=== PATIENT | female | born 1960 | race Caucasian/White ===

== ENCOUNTER 2025-02-20 18:18 | Inpatient (IN) | payer MEDICAID, MEDICARE ==
[~2025-02-20] VITALS: Ht 160 cm; Wt 67.2 kg
--- NOTE | 2025-02-20 18:38 | ECG ---
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
--- NOTE | 2025-02-20 18:50 | ED.PDOC ---
GI ASSESSMENT HPI Comments 64 year old female presents to the ED with a chief complaint of abdominal pain onset 3 days. Patient states she began experiencing diffused abdominal pain 3 days ago, noticed pain worsen this morning, had no output from colostomy bag since last night. She is currently experiencing dizziness, BP upon ED arrival was 85/56, has been experiencing intermittent abdominal pain for the past month. PMHx colon cancer, DM, HLD, HTN, thyroid disease, colectomy with colostomy bag in place. Denies fever, chills, chest pain, shortness of breath, dysuria, hematuria. No other symptoms or modifying factors present at this time. Chief Complaint: Abdominal Pain Time Seen by MD: 18:35 Primary Care Provider: NONE Reviewed Notes: Medications, Allergies Allergies: Coded Allergies: Codeine (Verified Allergy, 08/20/13) Information Source: Patient, Spouse Mode of Arrival: Wheelchair Timing: Hours Duration: Since onset Prehospital treatment: None Quality: Sharp Severity: Moderate Recent: None Recent Hx of: None Pain Location: Diffuse Modifying Factors: Nothing Associated sign and symptoms: Abdominal Pain Past Medical History PAST MEDICAL HISTORY: Cancer (colon), DM, High Lipids, HTN, Thyroid Surgical History (Other): partial thyroidectomy, colectomy 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 History Family History Family History: Unknown Social History Smoker: Non-Smoker Alcohol: Denies ETOH Use Drugs: Denies Drug Use Lives In: Home Constitutional: denies: chills, diaphoresis, fatigue, fever, malaise, sweats, weakness, others EENTM: denies: blurred vision, double vision, ear bleeding, ear discharge, ear drainage, ear pain, ear ringing, eye pain, eye redness, hearing loss, mouth pain, mouth swelling, nasal discharge, nose bleeding, nose congestion, nose pain, photophobia, tearing, throat pain, throat swelling, voice changes, others Respiratory: denies: cough, hemoptysis, orthopnea, SOB at rest, shortness of breath, SOB with excertion, stridor, wheezing, others Cardiovascular: denies: chest pain, dizzy spells, diaphoresis, Dyspnea on exertion, edema, irregular heart beat, left arm pain, lightheadedness, palpitations, PND, syncope, others Gastrointestinal: reports: abdominal pain; denies: abdomen distended, blood streaked bowels, constipated, diarrhea, dysphagia, difficulty swallowing, hematemesis, melena, nausea, poor appetite, poor fluid intake, rectal bleeding, rectal pain, vomiting, others Genitourinary: denies: abnormal vagina bleeding, burning, dyspareunia, dysuria, flank pain, frequency, hematuria, incontinence, pain, , vagina discharge, urgency, others Neurological: reports: dizziness; denies: fainting, headache, left sided numbness, left sided weakness, numbness, paresthesia, pre-existing deficit, right sided numbness, right sided weakness, seizure, speech problems, tingling, tremors, weakness, others Musculoskeletal: denies: back pain, gout, joint pain, joint swelling, muscle pain, muscle stiffness, neck pain, others Integumetry: denies: bruises, change in color, change in hair/nails, dryness, laceration, lesions, lumps, rash, wounds, others Allergic/Immunocompromised: denies: Difficulty Healing, Frequent Infections, Hives, Itching, others Hematologic/Lymphatic: denies: anemia, blood clots, easy bleeding, easy bruising, swollen glands, others Endocrine: denies: excessive hunger, excessive sweating, excessive thirst, excessive urination, flushing, intolerance to cold, intolerance to heat, unexplained weight gain, unexplained weight loss, others Psychiatric: denies: anxiety, bipolar disorder, depression, hopeless, panic disorder, schizophrenia, sleepless, suicidal, others All Other Systems: Reviewed and Negative Physical Exam General Appearance: Normal HEENT: Normal ENT Inspection, Pharynx Normal, TMs Normal Neck: Full Range of Motion, Non-Tender, Normal, Normal Inspection Respiratory: Chest Non-Tender, Lungs Clear, No Accessory Muscle Use, No Respiratory Distress, Normal Breath Sounds Cardiovascular: No Edema, No JVD, No Murmur, No Gallop, Normal Peripheral Pulses, Regular Rate/Rhythm Breast Exam: Deferred Gastrointestinal: No Organomegaly, Non Tender, No Pulsatile Mass, Normal Bowel Sounds, Soft Genitalia: Deferred Pelvic: Deferred Rectal: Deferred Extremities: No calf tenderness, Normal capillary refill, Normal inspection, Normal range of motion, Non-tender, No pedal edema Musculoskeletal : Apperance: Normal Neurologic: Alert, operations officer II-XII nml as Tested, No Motor Deficits, Normal Affect, Normal Mood, No Sensory Deficits Cerebellar Function: Normal Reflexes: Normal Skin: Dry, Normal Color, Warm Lymphatic: No Adenopathy Was a procedure done? Was a procedure done?: No GI differential Dx Differential Diagnosis: AAA, Appendicitis, Cholecystitis, Constipation, Diverticular disease, Gastritis/PUD, Gastroenteritis, GI hemorrhage, Urolithiasis, Dehydration, Kidney Stone, Other X-Ray, Labs, Meds, VS Vital Signs Date Time Temp Pulse Resp B/P (MAP) Pulse Ox O2 Delivery O2 Flow Rate FiO2 02/20/25 22:25 96.0 122 27 94/55 (68) 93 96.0 02/20/25 21:20 22 98 Room Air* 0 21 02/20/25 20:00 108 22 94/67 02/20/25 20:00 115 02/20/25 20:00 96.0 108 22 94/67 (76) 98 96.0 02/20/25 19:17 121 02/20/25 19:11 120 25 119/80 02/20/25 19:00 94.4 116 22 119/80 (93) 98 94.4 02/20/25 19:00 Room Air* 0 21 02/20/25 18:27 127 02/20/25 18:24 96.4 127 15 85/56 98 96.4 Lab Test 02/20/25 21:14 02/20/25 19:24 02/20/25 18:52 Range/Units Lactic Acid Level 11.2 *H 10.6 *H 0.4-2.0 mmol/L White Blood Count 32.0 *H 4.4-10.8 10^3/uL Red Blood Count 5.84 H 4.0-5.20 10^6/uL Hemoglobin 12.3 12.2-16.2 g/dL Hematocrit 43.5 36.0-46.0 % Mean Corpuscular Volume 74.5 L 80.0-100.0 fL Mean Corpuscular Hemoglobin 21.1 L 28.0-32.0 pg Mean Corpuscular Hemoglobin Concent 28.3 L 32.0-36.0 g/dL Red Cell Distribution Width 18.7 H 11.8-14.3 % Platelet Count 447 140-450 10^3/uL Mean Platelet Volume 9.3 6.9-10.8 fL Neutrophils (%) (Auto) 37.0-80.0 % Lymphocytes (%) (Auto) 10.0-50.0 % Monocytes (%) (Auto) 0.0-12.0 % Basophils (%) (Auto) 0.0-2.0 % Neutrophils # (Auto) 1.6-8.6 10 ^3/uL Lymphocytes # (Auto) 0.4-5.4 10 ^3/uL Monocytes # (Auto) 0-1.3 10 ^3/uL Differential Total Cells Counted 100.0 100 Neutrophils % (Manual) 64 37.0-80.0 Band Neutrophils % (Manual) 10 Lymphocytes % (Manual) 20 10.0-50.0 Monocytes % (Manual) 6 0-12 Eosinophils % (Manual) 0 0-7 Basophils % (Manual) 0 0.0-2.0 Metamyelocytes % (manual) 0 Myelocytes % (Manual) 0 Promyelocytes % (Manual) 0 Blast Cells % (Manual) 0 Reactive Lymphocytes 0 Platelet Estimate Adequate Large Platelets Few Hypochromasia (manual) Moderate Anisocytosis (manual) Moderate Microcytosis Moderate Prothrombin Time 11.9 H 9.3-11.8 sec Prothrombin Time INR 1.14 0.9-1.15 Activated Partial Thromboplast Time 30.7 24.5-34.5 SEC Sodium Level 136 136-145 mmol/L Potassium Level 2.9 L 3.5-5.1 mmol/L Chloride Level 102 98-107 mmol/L Carbon Dioxide Level 13 L 20-31 mmol/L Anion Gap 21 H 5-15 Blood Urea Nitrogen 18 9-23 mg/dL Creatinine 1.07 H 0.550-1.02 mg/dL Glomerular Filtration Rate Calc 58 >90 mL/min BUN/Creatinine Ratio 16.8 10.0-20.0 Serum Glucose 559 *H 74-106 mg/dL Hemoglobin A1c 7.1 H <5.7 % A1C Calcium Level 8.8 8.7-10.4 mg/dL Total Bilirubin 0.4 0.2-1.0 mg/dL Aspartate Amino Transferase (AST) 17 13-40 U/L Alanine Aminotransferase (ALT) 18 7-40 U/L Alkaline Phosphatase 124 H 46-116 U/L Total Protein 7.3 5.7-8.2 g/dL Albumin 4.4 3.2-4.8 g/dL Lipase 63 H 12-53 U/L Beta-Hydroxybutyric Acid Pending Current Medications Medications (Trade) Dose Ordered Sig/Kim Route Start Time Stop Time Status Last Admin Ondansetron HCl (Zofran) 4 mg ONCE ONCE IV 02/20/25 18:45 02/20/25 18:46 DC 02/20/25 19:10 Sodium Chloride 1,000 ml @ 1,000 mls/hr Q1H ONCE IVB 02/20/25 18:45 02/20/25 19:44 DC 02/20/25 19:12 Morphine Sulfate 4 mg ONCE ONCE IV 02/20/25 18:45 02/20/25 18:46 DC 02/20/25 19:11 Piperacillin Sod/ Tazobactam Sod 100 ml @ 100 mls/hr ONCE ONCE IV 02/20/25 19:15 02/20/25 20:14 DC 02/20/25 20:03 Insulin Human Regular (InsuLIN R) 5 units ONCE ONCE SC 02/20/25 19:30 02/20/25 19:31 DC 02/20/25 20:06 Potassium Chloride 100 ml @ 50 mls/hr ONCE ONCE IV 02/20/25 19:30 02/20/25 21:29 DC 02/20/25 21:33 Potassium Chloride (Klor-Con Tablet) 20 meq ONCE ONCE PO 02/20/25 19:30 02/20/25 19:31 DC 02/20/25 20:09 Lactated Ringer's 1,000 ml @ 1,000 mls/hr Q1H ONCE IV 02/20/25 22:30 02/20/25 23:29 DC 02/20/25 23:40 Lactated Ringer's 1,000 ml @ 125 mls/hr Q8H ONCE IV 02/20/25 22:30 02/21/25 06:29 02/21/25 01:04 Vancomycin HCl 250 ml @ 200 mls/hr ONCE ONCE IV 02/20/25 22:30 02/20/25 23:44 DC 02/20/25 23:[address] [address] Ph: [phone] DIAGNOSTIC IMAGING Diagnostic Imaging Report : [id number] Signed PATIENT: POOJA SCHILLING ACCT: [id number] UNIT: [id number] : 1960 LOC: ER ROOM / BED: / AGE / SEX: 64 / F ADM STATUS: REG ER SERVICE 1841 ORDERING PHYSICIAN: CIARA TRAVIS MD PROCEDURE(s): ABPLIV - CT AB PEL WITH IV CON ONLY REASON: abd pain h/o colon cancer resection / colostomy ORDER NUMBER(s): [id number], ACCESSION NUMBER(s): [id number] Exam: CT CT AB PEL WITH IV CON ONLY History: abd pain h/o colon cancer resection / colostomy Comparison Study: None TECHNIQUE: Multidetector CT of the abdomen was performed from lung bases to pubic symphysis. Imaging was performed without IV contrast. Axial, coronal and sagittal multiplanar reformats were obtained from the axial data set by the technologist. Radiation Dose Information: CT Dose: CTDI volume is 15.69 mGy. Dose-length product is 819.2 mGy*cm Omnipaque 300: 100 mL. FINDINGS: Evaluation of solid organs is limited due to lack of intravenous contrast use. Findings: Lung Bases: No acute or significant lung base finding. Normal heart size. No pleural or pericardial effusion. Liver: The liver is normal in size. No focal lesions. Gallbladder and Biliary Tree: Unremarkable Spleen: Unremarkable Pancreas: The pancreas is grossly normal in appearance. Adrenal Glands: Unremarkable Kidneys: Kidneys are grossly normal without calculi or hydronephrosis. Bladder: Grossly unremarkable for degree of distention. Bowel: The stomach is grossly normal in appearance. Small bowel and colon are normal in caliber and distribution. The appendix is not visualized; however, no secondary findings of acute appendicitis identified. Ascites: Scattered ascites. Lymphadenopathy: No mesenteric, retroperitoneal or periportal lymphadenopathy. Abdominal Wall and Mesentery: Colostomy in the left abdomen with subcutaneous collection of bowel and mesenteric fat in the area of the colostomy measuring 8.5 cm transverse dimension 4.3 cm in AP dimension. Dilatation of the small fang wel proximal to the colostomy. Vasculature: The visualized abdominal aorta is normal in size and caliber. Evaluation of abdominal and pelvic vessels is limited due to lack of intravenous contrast. Pelvic Organs: Ascites in the pelvis and cul-de-sac. e Musculoskeletal: No aggressive focal bony lesions, acute fractures or dislocation. Soft tissues: Unremarkable IMPRESSION: 1. Colostomy in the lower left abdomen. 2. Possible herniation into the subcutaneous tissues of the colostomy. 3. Possible small bowel obstruction. 4. Ascites 5. Compression of L1and T11. No displacement.No priorstudiesfor comparison. Radiation optimization: All CT scans at this facility use at least one of these dose optimization techniques: automated exposure control mA and/or kV adjustment per patient size (includes targeted exams where dose is matched to clinical indication) or iterative reconstruction. ATED BY: NELIDA NIXON Jr., DO DICTATED DATE/TIME: 02/20/252125 SIGNED BY: NELIDA NIXON Jr., SIGNED DATE/TIME: 02/20/252125 CC: Time of 1ST Reevaluation: 19:05 Reevaluation 1ST: Unchanged Patient Education/Counseling: Diagnosis, Treatment, Prognosis Family Education/Counseling: Diagnosis, Treatment, Prognosis Additional Information The following tests were ordered, and results were reviewed by me: EKG, CBC, CMP, LIPASE, UA, CT AB PEL WITH IV CON, PTPTT Additional Information was gathered from interviewing the following independent historians: spouse I reviewed and agreed with the following test results read by other providers:CT AB PEL WITH IV CON, I discussed treatment and results with medical personnel and: patient and spouse Comprehensive systems review obtained and negative except for what is stated in the HPI. Sepsis focused exam: focus exam completed (Patient was given 1 L of normal saline IV bolus fluid resuscitation and not the 30 cc/kilogram bolus due to concerns of fluid overload), time: (1999) SEPSIS Sepsis Screen Date sepsis recognized/suspect: Feb 20, 2025 Time Sepsis recognized/suspect: 1824 Recent Procedure: No On Antibiotic Therapy: No Respiratory Rate >20: No Heart Rate >90: Yes Temp<36 C (96.8 F) or >38.3 C: No SBP <90 or MAP <65 mmHG: Yes New Acute Mental Status Change: No Is the patient on CPAP, BIPAP,: No Physician Orders Electrocardigram (02/20/25 18:34) Ct Ab Pel With Iv Con Only (02/20/25 18:41) Blood Culture (02/20/25 19:10) Straight Cath Patient (02/20/25 21:45) Lactated Ringer's (02/20/25 22:30) Meropenem 1gm Ivpb (Merrem 1gm/ Ns) (02/21/25 01:00) Ng/Orogastric Tube To Lis (02/20/25 22:21) Vancomycin Per Pharmacy (02/20/25 22:30) Complete Blood Count (02/21/25 04:00) Comprehensive Metabolic Panel (02/21/25 04:00) Communication Order (02/20/25 22:27) Beta-Hydroxybutyrate (02/20/25 22:27) Intake And Output (02/20/25 22:32) Insert Subramanian Catheter QSHIFT (02/20/25 22:32) Npo (Nothing By Mouth) Diet (02/21/25 Breakfast) Oxygen By Nasal Cannula (02/20/25 22:32) Notify Of Changes From Base (02/20/25 22:32) Vital Signs Date Time Temp Pulse Resp B/P (MAP) Pulse Ox O2 Delivery O2 Flow Rate FiO2 02/20/25 22:25 96.0 122 27 94/55 (68) 93 96.0 02/20/25 21:20 22 98 Room Air* 0 21 02/20/25 20:00 108 22 94/67 02/20/25 20:00 115 02/20/25 20:00 96.0 108 22 94/67 (76) 98 96.0 02/20/25 19:17 121 02/20/25 19:11 120 25 119/80 02/20/25 19:00 94.4 116 22 119/80 (93) 98 94.4 02/20/25 19:00 Room Air* 0 21 02/20/25 18:27 127 02/20/25 18:24 96.4 127 15 85/56 98 96.4 Laboratory Tests Test 02/20/25 18:52 02/20/25 19:24 02/20/25 21:14 White Blood Count 32.0 10^3/uL (4.4-10.8) *H Lactic Acid Level 10.6 mmol/L (0.4-2.0) *H 11.2 mmol/L (0.4-2.0) *H Medications Medications Dose Ordered Sig/Kim Route Start Time Stop Time Status Last Admin Dose Admin Insulin Human Regular 5 units ONCE ONCE SC 02/20/25 19:30 02/20/25 19:31 DC 02/20/25 20:06 Lactated Ringer's 1,000 ml @ 125 mls/hr Q8H ONCE IV 02/20/25 22:30 02/21/25 06:29 02/21/25 01:04 Lactated Ringer's 1,000 ml @ 1,000 mls/hr Q1H ONCE IV 02/20/25 22:30 02/20/25 23:29 DC 02/20/25 23:40 Morphine Sulfate 4 mg ONCE ONCE IV 02/20/25 18:45 02/20/25 18:46 DC 02/20/25 19:11 Ondansetron HCl 4 mg ONCE ONCE IV 02/20/25 18:45 02/20/25 18:46 DC 02/20/25 19:10 Piperacillin Sod/ Tazobactam Sod 100 ml @ 100 mls/hr ONCE ONCE IV 02/20/25 19:15 02/20/25 20:14 DC 02/20/25 20:03 Potassium Chloride 20 meq ONCE ONCE PO 02/20/25 19:30 02/20/25 19:31 DC 02/20/25 20:09 Potassium Chloride 100 ml @ 50 mls/hr ONCE ONCE IV 02/20/25 19:30 02/20/25 21:29 DC 02/20/25 21:33 Sodium Chloride 1,000 ml @ 1,000 mls/hr Q1H ONCE IVB 02/20/25 18:45 02/20/25 19:44 DC 02/20/25 19:12 Vancomycin HCl 250 ml @ 200 mls/hr ONCE ONCE IV 02/20/25 22:30 02/20/25 23:44 DC 02/20/25 23:52 Departure 1 Departure Time of Disposition: 21:00 Impression: Primary Impression: Acute abdominal Pain Additional Impressions: acute dehydration Partial bowel obstruction Non-specific colitis Cardiopulmonary arrest Disposition: 20 Admit to: Condition: Unstable Comments Lab review shows a high white blood cell count of 38. Lactic acid elevated 10. Sepsis protocol was initiated. Patient was given IV fluid resuscitation and IV Zosyn and Vancomycin and Meropenem antibiotics. Patient was alert at this point and insisted that she did not want CPR or intubation. Patient is vital signs deteriorated. She was started on several pressors. She became bradycardic and hypotensive. ACLS medications were given. Patient developed PEA and then deteriorated to asystole. Patient was declared at 04:45 a.m. Critical Care Note Critical Care Time?: Yes (45 min-critical care time only) Critical care comment: Total critical care time: Approximately 36 minutes Due to a high probability of clinically significant, life threatening deterioration, the patient required my highest level of preparedness to intervene emergently and I personally spent this critical care time directly and personally managing the patient. This critical care time included obtaining a history; examining the patient; pulse oximetry; ordering and review of studies; arranging urgent treatment with development of a management plan; evaluation of patient's response to treatment; frequent reassessment; and, discussions with other providers. This critical care time was performed to assess and manage the high probability of imminent, life-threatening deterioration that could result in multi-organ failure. It was exclusive of separately billable procedures and treating other patients. Stability Stability form required: No Heart Score Heart Score: Heart Score Response (Comments) Value History N/A 0 EKG N/A 0 Age N/A 0 Risk Factors N/A 0 Troponin N/A 0 Total 0 I personally scribed for CIARA TRAVIS MD ([email or web address]) on 02/20/25 at 18:50. Electronically submitted by Laurie Valera ([email or web address]). I personally scribed for CIARA TRAVIS MD ([email or web address]) on 02/20/25 at 19:11. Electronically submitted by Laurie Valera ([email or web address]). I personally scribed for CIARA TRAVIS MD ([email or web address]) on 02/20/25 at 21:50. Electronically submitted by Laurie Valera ([email or web address]). CIARA TRAVIS MD Feb 20, 2025 18:50
[2025-02-20 19:08] LABS: Mean Corpuscular Hemoglobin 21.1 pg (28.0-32.0)
[2025-02-20 19:10] LABS: Hematocrit 43.5 % (36.0-46.0); Hemoglobin 12.3 g/dL (12.2-16.2); Mean Corpuscular Volume 74.5 fL (80.0-100.0)
[2025-02-20] MEDS: ONDANSETRON HCL 4 MG/2 ML VIAL IV ONE (19:10)
[2025-02-20] MEDS: MORPHINE SULFATE 4 MG/ML SYR/VIAL IV ONE (19:11)
[2025-02-20] MEDS: SODIUM CHLORIDE 0.9% 1,000 ML IVB ONE (19:12)
[2025-02-20 19:20] LABS: INR 1.14 (0.9-1.15); Partial Thromboplastin Time 30.7 SEC (24.5-34.5); Prothrombin Time 11.9 sec (9.3-11.8)
[2025-02-20 19:22] LABS: Alanine Aminotransferase 18 U/L (7-40); Albumin 4.4 g/dL (3.2-4.8); Anion Gap 21 (5-15); BUN/Creatinine Ratio 16.8 (10.0-20.0); Blood Urea Nitrogen 18 mg/dL (9-23); Calcium 8.8 mg/dL (8.7-10.4); Chloride 102 mmol/L (98-107); Total Protein 7.3 g/dL (5.7-8.2)
[2025-02-20 19:23] LABS: Alkaline Phosphatase 124 U/L (46-116); Bilirubin, Total 0.4 mg/dL (0.2-1.0); Carbon Dioxide 13 mmol/L (20-31); Potassium 2.9 mmol/L (3.5-5.1); Sodium 136 mmol/L (136-145)
[2025-02-20 19:25] LABS: Glucose 559 mg/dL (74-106)
[2025-02-20 19:44] LABS: Lipase 63 U/L (12-53)
[2025-02-20] MEDS: IOHEXOL 300 MG/ML 100ML BOTTLE IJ ONE ×2 (19:51→20:36)
[2025-02-20 19:56] LABS: Anisocytosis Moderate; Total Cells Counted 100.0 (100)
[2025-02-20] MEDS: PIPERACILLIN-TAZOB 3.375GM 100 ML IV ONE (20:03)
[2025-02-20] MEDS: InsuLIN REG 1unit/0.01ml Soln (100units/ml) SC ONE (20:06)
[2025-02-20] MEDS: POTASSIUM CHL 20 Meq TABLET PO ONE (20:09)
[2025-02-20 20:25] LABS: Lactic Acid w/Reflex 10.6 mmol/L (0.4-2.0)
[2025-02-20 21:20] VITALS: RESP 22; O2SAT 98
--- NOTE | 2025-02-20 21:29 | DVH ---
Exam: CT CT AB PEL WITH IV CON ONLY History: abd pain h/o colon cancer resection / colostomy Comparison Study: None TECHNIQUE: Multidetector CT of the abdomen was performed from lung bases to pubic symphysis. Imaging was performed without IV contrast. Axial, coronal and sagittal multiplanar reformats were obtained fr om the axial data set by the technologist. Radiation Dose Information: CT Dose: CTDI volume is 15.69 mGy. Dose-length product is 819.2 mGy*cm Omnipaque 300: 100 mL. FINDINGS: Evaluation of solid organs is limited due to lack of intravenous contrast use. Findings: Lung Bases: No acute or significant lung base finding. Normal heart size. No pleural or pericardial effusion. Liver: The liver is normal in size. No focal lesions. Gallbladder and Biliary Tree: Unremarkable Spleen: Unremarkable Pancreas: The pancreas is grossly normal in appearance. Adrenal Glands: Unremarkable Kidneys: Kidneys are grossly normal without calculi or hydronephrosis. Bladder: Grossly unremarkable for degree of distention. Bowel: The stomach is grossly normal in appearance. Small bowel and colon are normal in caliber and d istribution. The appendix is not visualized; however, no secondary findings of acute appendicitis id entified. Ascites: Scattered ascites. Lymphadenopathy: No mesenteric, retroperitoneal or periportal lymphadenopathy. Abdominal Wall and Mesentery: Colostomy in the left abdomen with subcutaneous collection of bowel and mesenteric fat in the area of the colostomy measuring 8.5 cm transverse dimension 4.3 cm in AP dimen karol. Dilatation of the small bowel proximal to the colostomy. Vasculature: The visualized abdominal aorta is normal in size and caliber. Evaluation of abdominal a nd pelvic vessels is limited due to lack of intravenous contrast. Pelvic Organs: Ascites in the pelvis and cul-de-sac. e Musculoskeletal: No aggressive focal bony lesions, acute fractures or dislocation. Soft tissues: Unremarkable IMPRESSION: 1. Colostomy in the lower left abdomen. 2. Possible herniation into the subcutaneous tissues of the colostomy. 3. Possible small bowel obstruction. 4. Ascites 5. Compression of L1and T11. No displacement.No priorstudiesfor comparison. Radiation optimization: All CT scans at this facility use at least one of these dose optimization richard hniques: automated exposure control mA and/or kV adjustment per patient size (includes targeted exam s where dose is matched to clinical indication) or iterative reconstruction.
[2025-02-20] MEDS: POTASSIUM CHL 20MEQ/100ML 100 ML IV ONE (21:33)
--- NOTE | 2025-02-20 22:23 | DVHHPRES ---
History of Present Illness Resident Creating Document: CYRUS ALVA RESIDENT History of Present Illness 64-year-old female with previous history of metastatic colon cancer resection surgery with left-sided colostomy bag in place, weight reduction surgery, multiple spine surgeries following trauma, thyroid cancer resection on levo thyroxine, uncontrolled diabetes mellitus and hypertension presents to the ER with diffuse crampy abdominal pain since last 3 days, which is intermittent in nature, 10/10 in intensity, associated with bilious vomiting and nausea. Since morning she had no colostomy bag output. The patient denies any chest pain, shortness of breath, fever, burning sensation in urination or any other associated complaints. Past medical history: Diabetes mellitus, hypertension Past surgical history: Metastatic colon cancer resection surgery with right- sided colostomy bag in place, weight reduction surgery, multiple spine surgeries following trauma, thyroid cancer resection on levothyroxine Home medications: Metformin, levothyroxine, oxybutynin, zolpidem, Lipitor, Zoloft Allergies: Codeine PCP: None Family history: Mother had colon cancer Lives with family Smoking history: Never Alcohol: Never Drugs: Never Code status DNR DNI Review of Systems Review of Systems Was seen and examined at the bedside. She reports having abdominal pain, nausea and vomiting and decreased colostomy bag output. Rest of the ROS is negative. Allergies: Coded Allergies: Codeine (Verified Allergy, 08/20/13) Exam Vital Signs Vital Signs Date Time Temp Pulse Resp B/P (MAP) Pulse Ox O2 Delivery O2 Flow Rate FiO2 02/20/25 21:20 22 98 Room Air* 0 21 02/20/25 20:00 96.0 108 94/67 (76) 96.0 Exam Pt is lying on bed General Appearance: Alert, Oriented X3, Cooperative, Mild distress HEENT: Atraumatic, Mucous membranes moist/pink Respiratory: Clear to auscultation, Normal air movement, No added sounds Cardiovascular: Regular rate, Normal S1, Normal S2, No murmurs Abdominal/ : Colostomy bag with minimal output on the left lower abdomen, Diminished bowel sounds, no rigidity or guarding, mildly distended, diffusely tender Extremities: No edema, Normal pulses, No tenderness/swelling Skin: No Significant rash, except past surgical scars Neuro: Normal speech, sensorimotor deficits none Psych/Mental Status: Mental status NL, Mood NL Nurse was there as store planner during examination Labs/Xrays Labs Test 02/20/25 21:14 02/20/25 18:52 Range/Units Lactic Acid Level 11.2 *H 0.4-2.0 mmol/L White Blood Count 32.0 *H 4.4-10.8 10^3/uL Red Blood Count 5.84 H 4.0-5.20 10^6/uL Hemoglobin 12.3 12.2-16.2 g/dL Hematocrit 43.5 36.0-46.0 % Mean Corpuscular Volume 74.5 L 80.0-100.0 fL Mean Corpuscular Hemoglobin 21.1 L 28.0-32.0 pg Mean Corpuscular Hemoglobin Concent 28.3 L 32.0-36.0 g/dL Red Cell Distribution Width 18.7 H 11.8-14.3 % Platelet Count 447 140-450 10^3/uL Mean Platelet Volume 9.3 6.9-10.8 fL Neutrophils (%) (Auto) 37.0-80.0 % Lymphocytes (%) (Auto) 10.0-50.0 % Monocytes (%) (Auto) 0.0-12.0 % Basophils (%) (Auto) 0.0-2.0 % Neutrophils # (Auto) 1.6-8.6 10 ^3/uL Lymphocytes # (Auto) 0.4-5.4 10 ^3/uL Monocytes # (Auto) 0-1.3 10 ^3/uL Differential Total Cells Counted 100.0 100 Neutrophils % (Manual) 64 37.0-80.0 Band Neutrophils % (Manual) 10 Lymphocytes % (Manual) 20 10.0-50.0 Monocytes % (Manual) 6 0-12 Eosinophils % (Manual) 0 0-7 Basophils % (Manual) 0 0.0-2.0 Metamyelocytes % (manual) 0 Myelocytes % (Manual) 0 Promyelocytes % (Manual) 0 Blast Cells % (Manual) 0 Reactive Lymphocytes 0 Platelet Estimate Adequate Large Platelets Few Hypochromasia (manual) Moderate Anisocytosis (manual) Moderate Microcytosis Moderate Prothrombin Time 11.9 H 9.3-11.8 sec Prothrombin Time INR 1.14 0.9-1.15 Activated Partial Thromboplast Time 30.7 24.5-34.5 SEC Sodium Level 136 136-145 mmol/L Potassium Level 2.9 L 3.5-5.1 mmol/L Chloride Level 102 98-107 mmol/L Carbon Dioxide Level 13 L 20-31 mmol/L Anion Gap 21 H 5-15 Blood Urea Nitrogen 18 9-23 mg/dL Creatinine 1.07 H 0.550-1.02 mg/dL Glomerular Filtration Rate Calc 58 >90 mL/min BUN/Creatinine Ratio 16.8 10.0-20.0 Serum Glucose 559 *H 74-106 mg/dL Calcium Level 8.8 8.7-10.4 mg/dL Total Bilirubin 0.4 0.2-1.0 mg/dL Aspartate Amino Transferase (AST) 17 13-40 U/L Alanine Aminotransferase (ALT) 18 7-40 U/L Alkaline Phosphatase 124 H 46-116 U/L Total Protein 7.3 5.7-8.2 g/dL Albumin 4.4 3.2-4.8 g/dL Lipase 63 H 12-53 U/L SEPSIS Sepsis Screen Date sepsis recognized/suspect: Feb 20, 2025 Time Sepsis recognized/suspect: 1824 Recent Procedure: No On Antibiotic Therapy: No Respiratory Rate >20: No Heart Rate >90: Yes Temp<36 C (96.8 F) or >38.3 C: No SBP <90 or MAP <65 mmHG: Yes New Acute Mental Status Change: No Is the patient on CPAP, BIPAP,: No Physician Orders Urinalysis (02/20/25 18:41) Ct Ab Pel With Iv Con Only (02/20/25 18:41) Blood Culture (02/20/25 19:10) Straight Cath Patient (02/20/25 21:45) Vital Signs Date Time Temp Pulse Resp B/P (MAP) Pulse Ox O2 Delivery O2 Flow Rate FiO2 02/20/25 21:20 22 98 Room Air* 0 21 02/20/25 20:00 96.0 108 22 94/67 (76) 98 96.0 02/20/25 19:17 121 02/20/25 19:11 120 25 119/80 02/20/25 19:00 94.4 116 22 119/80 (93) 98 94.4 02/20/25 19:00 Room Air* 0 21 02/20/25 18:27 127 02/20/25 18:24 96.4 127 15 85/56 98 96.4 Laboratory Tests Test 02/20/25 18:52 02/20/25 19:24 02/20/25 21:14 White Blood Count 32.0 10^3/uL (4.4-10.8) *H Lactic Acid Level 10.6 mmol/L (0.4-2.0) *H 11.2 mmol/L (0.4-2.0) *H Medications Medications Dose Ordered Sig/Kim Route Start Time Stop Time Status Last Admin Dose Admin Insulin Human Regular 5 units ONCE ONCE SC 02/20/25 19:30 02/20/25 19:31 DC 02/20/25 20:06 5 UNITS Morphine Sulfate 4 mg ONCE ONCE IV 02/20/25 18:45 02/20/25 18:46 DC 02/20/25 19:11 4 MG Ondansetron HCl 4 mg ONCE ONCE IV 02/20/25 18:45 02/20/25 18:46 DC 02/20/25 19:10 4 MG Piperacillin Sod/ Tazobactam Sod 100 ml @ 100 mls/hr ONCE ONCE IV 02/20/25 19:15 02/20/25 20:14 DC 02/20/25 20:03 100 MLS/HR Potassium Chloride 20 meq ONCE ONCE PO 02/20/25 19:30 02/20/25 19:31 DC 02/20/25 20:09 20 MEQ Potassium Chloride 100 ml @ 50 mls/hr ONCE ONCE IV 02/20/25 19:30 02/20/25 21:29 DC 02/20/25 21:33 50 MLS/HR Sodium Chloride 1,000 ml @ 1,000 mls/hr Q1H ONCE IVB 02/20/25 18:45 02/20/25 19:44 DC 02/20/25 19:12 1,000 MLS/HR Assessment/Plan Assessment/Plan Sepsis due to small bowel obstruction Severe abdominal pain due to small-bowel obstruction Leukocytosis: WBC 32, lactic acid: 11 CT abdomen and pelvis:Colostomy in the lower left abdomen.Possible herniation into the subcutaneous tissues of the colostomy.Possible small bowel obstruction. Ascites. Compression of L1and T11. No displacement.No priorstudiesfor comparison. -NPO -IV fluid lactated Ringer's solution -low intermittent suction with NG tube -meropenem and vancomycin -general surgery consulted Metabolic acidosis due to lactic acidosis/DKA Uncontrolled diabetes mellitus ABG: PH 7.1-7, pCO2 17.6, PO2 108.5, bicarbonate 5.7, base excess -21.5 -ongoing management of lactic acidosis and DKA -start sodium bicarbonate -Lantus 18 units subcutaneous -moderate insulin sliding scale -HbA1c ordered, pending results Hypothyroidism followed by Thyroid resection due to cancer Levothyroxine 125 mcg would tablet daily for 6 days. 1.5 tablets once a week. Hyperlipidemia Lipitor 40 mg daily GI prophylaxis: Pantoprazole DVT prophylaxis: SCDs until surgery consult Diet: NPO Goals of care discussed with the patient for more than 27 minutes: Full code status Case discussed with Dr. Donato, patient and RN Plan discussed with: Patient, Spouse (RN), Other Date of Service: Feb 20, 2025 Billing Provider: HUGO DONATO MD Common Visit Codes: [id number] INP/OBS CARE (HIGH) CYRUS ALVA Feb 20, 2025 22:23 HUGO DONATO MD Feb 21, 2025 16:36
[2025-02-20] MEDS ORDERED: VANCOMYCIN PER PHARMACY 0 MG IV SCH (22:30)
[2025-02-20 22:49] LABS: Base Excess -21.5 mmol/L (-2.0-3.0)
[2025-02-20] MEDS ORDERED: DEXTROSE (50%) 50ML SYRG IV PRN (23:15)
[2025-02-20] MEDS: LACTATED RINGER'S 1,000 ML IV ONE (23:40)
[2025-02-20] MEDS: VANCOMYCIN 1.25GM/250ML IV ONE (23:52)
[2025-02-21] MEDS: ACCU-CHEK COMFORT CURVE STRIP VI SCH (00:13)
[2025-02-21] MEDS: INSULIN LANTUS (GLARGINE) 1 /0.01ml (100units/ml) SC STA (00:23)
[2025-02-21] MEDS: InsuLIN REG 1unit/0.01ml Soln (100units/ml) SC SCH (00:24)
[2025-02-21] MEDS: POTASSIUM CHL 20MEQ/100ML 100 ML IV ONE (01:03)
[2025-02-21] MEDS: LACTATED RINGER'S 1,000 ML IV ONE (01:04)
--- NOTE | 2025-02-21 01:08 | DVH ---
CHEST RADIOGRAPH Indication: NG TUBE PLACEMENT Technique: Single frontal view of the chest was obtained Comparison: None FINDINGS: Lines and Tubes: enteric tube although side hole appears to be at GE junction; consider at least 3 cm advancement. Lungs: No focal consolidation. Pleura: No effusion. No pneumothorax. Cardiomediastinal contours: Unremarkable Bones: No acute osseous abnormality. cervical acdf. IMPRESSION: 1. enteric tube although side hole appears to be at GE junction; consider at least 3 cm advancement.
[2025-02-21 01:30] VITALS: TEMP 98.7
[2025-02-21 01:38] LABS: Lactic Acid w/Reflex 10.6 mmol/L (0.4-2.0)
[2025-02-21 02:11] LABS: Urine Protein, UAD 1+ (Negative)
[2025-02-21] MEDS ORDERED: NOREPINEPHRINE 8 MG/250ML KIT 250 ML IV SCH (02:15)
[2025-02-21 02:24] LABS: Benzodiazephine Screen, Urine Neg (NEGATIVE); Opiate Scree,Urine Pos (NEGATIVE)
[2025-02-21 02:27] LABS: Amphetamine Screen, Urine Neg (NEGATIVE); Barbiturate Scree,Urine Neg (NEGATIVE); Cannabinoid Screen, Urine Neg (NEGATIVE); Cocaine Screen, Urine Neg (NEGATIVE); Phencyclidine Screen, Urine Neg (NEGATIVE)
[2025-02-21] MEDS: NOREPINEPHRINE 8 MG/250ML KIT 250 ML IV SCH (02:27)
[2025-02-21] MEDS: MEROPENEM 1GM IVPB 50 ML IV SCH (03:03)
[2025-02-21] MEDS: ATROPINE SULF 1 MG/10ml SYR IV ONE ×2 (03:32→03:43)
[2025-02-21] MEDS: SODIUM BICARB 8.4% 50Meq/50ml SYR Vial IV ONE (03:32)
[2025-02-21] MEDS: EPINEPHrine HCL 250 ML IV SCH ×2 (03:45)
[2025-02-21] MEDS: SODIUM BICARB 50mEq/50ml Vial 50 ML in SOD CHL 0.45% 1,000 ML IV ONE (04:05)
[2025-02-21] MEDS: VASOPRESSIN 20 UNITS in SODIUM CHL 0.9% 99 ML IV SCH (04:16)
[2025-02-21] MEDS: VASOPRESSIN 20 UNIT/ML ONE (04:17)
[2025-02-21] MEDS: EPINEPHrine HCL 250 ML IV ONE (04:28)
[2025-02-21 04:35] VITALS: BP 67/48; PULSE 139; RESP 13; O2SAT 75
[2025-02-21] MEDS ORDERED: ATROPINE SULF 1 MG/10ml SYR IV ONE ×2 (04:44→05:30)
--- NOTE | 2025-02-21 06:54 | RESUS ---
CODE BLUE ASSESSSMENT History of Events History of Events: 64 year old female presents to the ED with a chief complaint of abdominal pain onset 3 days. Patient states she began experiencing diffused abdominal pain 3 days ago, noticed pain worsen this morning, had no output from colostomy bag since last night. She is currently experiencing dizziness, BP upon ED arrival was 85/56, has been experiencing intermittent abdominal pain for the past month. PMHx colon cancer, DM, HLD, HTN, thyroid disease, colectomy with colostomy bag in place. Denies fever, chills, chest pain, shortness of breath, dysuria, hematuria. PER FAMILY CHEMICAL CODE Initial Information Date: Feb 21, 2025 Time: 04:30 Location of Arrest: ER Arrest Witnessed: Yes CPR started initial time: 04:30 CPR started by whom: Hospital Staff Last seen well: PRIOR TO CODE Pre-Hospital Care: ACLS Type of arrest: Cardiac, Respiratory, Adult, Witnessed Spontaneous Respirations: No Pulse Present: No Monitoring: ECG, Apnea, Telemetry Crash Cart Opened and Supplies: Yes Airway Ventilation Breathing at Onset: Apneic O2 Sat by Pulse Oximetry: 0 Oxygen Delivery Method: Nasal Cannula Oxygen 4 L Comments: PT WAS NO INTUBATION PER FAMILY Circulation Circulation : Time: 04:30 Pulse Rate (adult): 0 Blood Pressure Systolic: 0 Blood Pressure Diastolic: 0 Temperature (Fahrenheit): 96 Medications & Response Medications and Responses #1: Medication Time: 04:30 ADULT Medications Given ADULT: Epinephrine 1 mg, Sodium Bacarbinate 50 meq Route of Administration: IV Heart Rate: 0 EKG Rhythm: PEA Blood Pressure Systolic: 0 Blood Pressure Diastolic: 0 Respiratory Rate: 0 O2 Sat by Pulse Oximetry: 0 EKG Rhythm: PEA Comment 0433 NO PULSE Medications and Responses #2: Medication Time: 04:33 ADULT Medications Given ADULT: Epinephrine 1 mg Route of Administration: IV Heart Rate: 0 EKG Rhythm: PEA Blood Pressure Systolic: 0 Blood Pressure Diastolic: 0 Respiratory Rate: 0 O2 Sat by Pulse Oximetry: 0 EKG Rhythm: PEA Comment 0436 ROSC 0440 NO PULSE Medications and Responses #3: Medication Time: 04:40 ADULT Medications Given ADULT: Epinephrine 1 mg Route of Administration: IV Heart Rate: 0 EKG Rhythm: PEA Blood Pressure Systolic: 0 Blood Pressure Diastolic: 0 Respiratory Rate: 0 O2 Sat by Pulse Oximetry: 0 EKG Rhythm: PEA Comment NO PULSE 0443 Medications and Responses #4: Medication Time: 04:43 ADULT Medications Given ADULT: Epinephrine 1 mg Route of Administration: IV Heart Rate: 0 EKG Rhythm: Asystole Blood Pressure Systolic: 0 Blood Pressure Diastolic: 0 Respiratory Rate: 0 O2 Sat by Pulse Oximetry: 0 EKG Rhythm: Asystole Comment TOD 0445 Pacing Pacer Pads Applied and Pacing: No Procedure - Central Venous Cat Comment: 1 ATTEMPT UNSUCCESSFUL Procedure - Subramanian Catheter Comment: PLACED PRIOR TO CODE Nurses Notes [place] Coma Scale Eye Opening: None (1) Matt Coma Scale Verbal: None (1) Matt Coma Scale Motor: None (1) [place] Total: 3 Pupil Reaction: Non Reactive EKG Rhythm: Asystole Time Code Ended Time Code Ended: 04:45 Post Arrest Status: Outcome of code: Unsuccessful Patient pronounced by: DR TRAVIS Time patient pronounced: 04:45 Family notified: Yes Attending called: Yes Code Team Present: MONICA MELCHOR RN HS, MILVIA MACHINE OPERATOR SLITTER TECHNICIAN, RAQUEL RN, BRENNON RN, MARTINEZ ALVAREZ RN Post Resuscitation Neurologica Pupil Size: 3 Comment: MONICA MATA Feb 21, 2025 06:54
--- NOTE | 2025-02-21 07:04 | DVHINCON2 ---
Date of service: Feb 21, 2025 Allergies: Coded Allergies: Codeine (Verified Allergy, 08/20/13) Current Medications Current Medications Medications (Trade) Dose Ordered Sig/Kim Route PRN Reason Start Time Stop Time Status Last Admin Meropenem 50 ml @ 17 mls/hr Q8HR IV 02/21/25 01:00 02/21/25 03:03 Vancomycin HCl 0 ml @ 0 mls/hr UD IV 02/20/25 22:30 Insulin Glargine (Lantus) 18 units QAM STAT SC 02/20/25 23:05 02/20/25 23:11 DC 02/21/25 00:23 Diagnostic Test (Pha) (Accu-Chek Comfort Curve T) 1 strip Q6HR 02/21/25 00:00 02/21/25 00:13 Insulin Human Regular (InsuLIN R) Q6HR SC 02/21/25 00:00 02/21/25 00:24 Dextrose 50 ml UD PRN IV Blood Sugar LESS THAN 60 02/20/25 23:15 Pantoprazole Sodium (Protonix) 40 mg DAILY IV 02/21/25 10:00 Norepinephrine Bitartrate 250 ml @ 3.75 mls/hr Q24H IV 02/21/25 02:30 02/21/25 02:27 Norepinephrine Bitartrate 250 ml @ 3.75 mls/hr Q24H IV 02/21/25 02:15 02/21/25 02:20 DC Vasopressin 20 units/Sodium Chloride 100 ml @ 9 mls/hr Q11H7M IV 02/21/25 04:15 02/21/25 04:16 Epinephrine HCl 250 ml @ 7.5 mls/hr Q24H IV 02/21/25 04:30 02/21/25 05:42 DC 02/21/25 03:45 Epinephrine HCl 250 ml @ 7.5 mls/hr Q24H IV 02/21/25 05:45 02/21/25 03:45 Vital Signs Vital Signs Date Time Temp Pulse Resp B/P (MAP) Pulse Ox O2 Delivery O2 Flow Rate FiO2 02/21/25 06:54 204.8 0 0 Nasal Cannula 02/21/25 04:35 13 67/48 (54) 02/20/25 21:20 0 21 Labs/Diagnostic Data Labs Test 02/21/25 03:47 02/21/25 02:56 02/21/25 01:53 02/21/25 01:00 Range/Units Blood Gas Specimen Type Venous Blood Gas Sample Site Vbg - n/a Blood Gas Patient Temperature 37.0 Arterial Blood Date Drawn [id number] Ziyad Test N/a Venous Blood pH 6.890 *L 7.320-7.430 Venous Blood pCO2 at Patient Temp 36.7 L 38.0-54.0 mmHg Venous Blood pO2 at Patient Temp < 36.5 23.0-48.0 mmHg Venous Blood HCO3 6.9 L 22.0-29.0 mmol/L Venous Blood Base Excess -25.9 L -2.0-3.0 mmol/L Blood Gas Liter Flow 6.00 Blood Gas Modality Mask - simple Blood Gas Spontaneous Rate 10 FiO2 % 40.0 Specimen Drawn By renetta Friedman rn Blood Gas Critical Value Read Back Yes Blood Gas Notified Whom neyda Bergman md Blood Gas Notified Time [id number] Blood Gas Notified By [facility] Lactic Acid Level 12.2 *H 0.4-2.0 mmol/L Urine Color Yellow Yellow Urine Clarity Turbid H Clear Urine pH 5.5 5.0-9.0 Urine Specific [place] > 1.050 H 1.001-1.035 Urine Protein 1+ H Negative Urine Ketones Trace Negative Urine Blood 1+ H Negative /uL Urine Nitrite Negative Negative Urine Bilirubin Negative Negative Urine Urobilinogen Normal Negative mg/dL Urine Leukocyte Esterase Negative Negative /uL Urine RBC 18 0 - 4 /hpf Urine Microscopic WBC 18 H 0-5 /HPF Urine Squamous Epithelial Cells Few <5 /hpf Urine Bacteria None seen None Seen /hpf Urine Glucose 2+ H Normal mg/dL Urine Opiates Screen Pos NEGATIVE Urine Fentanyl Screen Neg NEGATIVE Urine Barbiturates Screen Neg NEGATIVE Urine Phencyclidine Screen Neg NEGATIVE Urine Amphetamines Screen Neg NEGATIVE Urine Benzodiazepines Screen Neg NEGATIVE Urine Cocaine Screen Neg NEGATIVE Urine Cannabinoids Screen Neg NEGATIVE Potassium Level 4.5 3.5-5.1 mmol/L Test 02/20/25 22:38 02/20/25 18:52 Range/Units Arterial Blood pH 7.127 *L 7.350-7.450 Arterial Blood Partial Pressure CO2 17.6 *L 32.0-45.0 mmHg Arterial Blood Partial Pressure O2 108.5 H 83.0-108.0 mmHg Arterial Blood HCO3 5.7 L 21.0-28.0 mmol/L Arterial Blood Oxygen Saturation 96.9 94.0-98.0 % Arterial Blood Base Excess -21.5 L -2.0-3.0 mmol/L Arterial Blood Oxyhemoglobin 95.7 94.0-98.0 % Arterial Blood Carboxyhemoglobin 0.6 0.5-1.5 % Arterial Blood Methemoglobin 0.6 0.0-1.5 % Blood Gas Total Hemoglobin 12.20 12.0-16.0 g/dL White Blood Count 32.0 *H 4.4-10.8 10^3/uL Red Blood Count 5.84 H 4.0-5.20 10^6/uL Hemoglobin 12.3 12.2-16.2 g/dL Hematocrit 43.5 36.0-46.0 % Mean Corpuscular Volume 74.5 L 80.0-100.0 fL Mean Corpuscular Hemoglobin 21.1 L 28.0-32.0 pg Mean Corpuscular Hemoglobin Concent 28.3 L 32.0-36.0 g/dL Red Cell Distribution Width 18.7 H 11.8-14.3 % Platelet Count 447 140-450 10^3/uL Mean Platelet Volume 9.3 6.9-10.8 fL Neutrophils (%) (Auto) 37.0-80.0 % Lymphocytes (%) (Auto) 10.0-50.0 % Monocytes (%) (Auto) 0.0-12.0 % Basophils (%) (Auto) 0.0-2.0 % Neutrophils # (Auto) 1.6-8.6 10 ^3/uL Lymphocytes # (Auto) 0.4-5.4 10 ^3/uL Monocytes # (Auto) 0-1.3 10 ^3/uL Differential Total Cells Counted 100.0 100 Neutrophils % (Manual) 64 37.0-80.0 Band Neutrophils % (Manual) 10 Lymphocytes % (Manual) 20 10.0-50.0 Monocytes % (Manual) 6 0-12 Eosinophils % (Manual) 0 0-7 Basophils % (Manual) 0 0.0-2.0 Metamyelocytes % (manual) 0 Myelocytes % (Manual) 0 Promyelocytes % (Manual) 0 Blast Cells % (Manual) 0 Reactive Lymphocytes 0 Platelet Estimate Adequate Large Platelets Few Hypochromasia (manual) Moderate Anisocytosis (manual) Moderate Microcytosis Moderate Prothrombin Time 11.9 H 9.3-11.8 sec Prothrombin Time INR 1.14 0.9-1.15 Activated Partial Thromboplast Time 30.7 24.5-34.5 SEC Sodium Level 136 136-145 mmol/L Chloride Level 102 98-107 mmol/L Carbon Dioxide Level 13 L 20-31 mmol/L Anion Gap 21 H 5-15 Blood Urea Nitrogen 18 9-23 mg/dL Creatinine 1.07 H 0.550-1.02 mg/dL Glomerular Filtration Rate Calc 58 >90 mL/min BUN/Creatinine Ratio 16.8 10.0-20.0 Serum Glucose 559 *H 74-106 mg/dL Hemoglobin A1c 7.1 H <5.7 % A1C Calcium Level 8.8 8.7-10.4 mg/dL Total Bilirubin 0.4 0.2-1.0 mg/dL Aspartate Amino Transferase (AST) 17 13-40 U/L Alanine Aminotransferase (ALT) 18 7-40 U/L Alkaline Phosphatase 124 H 46-116 U/L Total Protein 7.3 5.7-8.2 g/dL Albumin 4.4 3.2-4.8 g/dL Lipase 63 H 12-53 U/L Assessment 02/21/25 I WAS NEVER NOTIFIERD OF A SURGICAL CONSULT FOR THIS PATIENT , ONLY ANDIE MELANIE AWARE OF HER WHEN SHE APPEARED ON MY ROUNDS LIST, NEVER GOT TO SEE PATIENT Plan discussed with: Patient NEHA REINOSO MD Feb 21, 2025 07:04
--- NOTE | 2025-02-21 07:15 | DVHDSRES ---
Discharge Summary Date of Admission Resident Creating Document: CYRUS ALVA RESIDENT Feb 20, 2025 at 22:37 Date of Discharge: Feb 21, 2025 Admitting Diagnosis Septic shock with possible small bowel obstruction Wounds: No wounds present at this time Labs/Diagnostic Data: Laboratory Results Test 02/21/25 03:47 02/21/25 02:56 02/21/25 01:53 02/21/25 01:00 Blood Gas Specimen Type Venous Blood Gas Sample Site Vbg - n/a Blood Gas Patient Temperature 37.0 Arterial Blood Date Drawn [id number] Ziyad Test N/a Venous Blood pH 6.890 (7.320-7.430) Venous Blood pCO2 at Patient Temp 36.7 mmHg (38.0-54.0) Venous Blood pO2 at Patient Temp < 36.5 mmHg (23.0-48.0) Venous Blood HCO3 6.9 mmol/L (22.0-29.0) Venous Blood Base Excess -25.9 mmol/L (-2.0-3.0) Blood Gas Liter Flow 6.00 Blood Gas Modality Mask - simple Blood Gas Spontaneous Rate 10 FiO2 % 40.0 Specimen Drawn By renetta Friedman rn Blood Gas Critical Value Read Back Yes Blood Gas Notified Whom neyda Bergman md Blood Gas Notified Time [id number] Blood Gas Notified By [facility] rt Lactic Acid Level 12.2 mmol/L (0.4-2.0) Urine Color Yellow (Yellow) Urine Clarity Turbid (Clear) Urine pH 5.5 (5.0-9.0) Urine Specific [place] > 1.050 (1.001-1.035) Urine Protein 1+ (Negative) Urine Ketones Trace (Negative) Urine Blood 1+ /uL (Negative) Urine Nitrite Negative (Negative) Urine Bilirubin Negative (Negative) Urine Urobilinogen Normal mg/dL (Negative) Urine Leukocyte Esterase Negative /uL (Negative) Urine RBC 18 /hpf (0 - 4) Urine Microscopic WBC 18 /HPF (0-5) Urine Squamous Epithelial Cells Few /hpf (<5) Urine Bacteria None seen /hpf (None Seen) Urine Glucose 2+ mg/dL (Normal) Urine Opiates Screen Pos (NEGATIVE) Urine Fentanyl Screen Neg (NEGATIVE) Urine Barbiturates Screen Neg (NEGATIVE) Urine Phencyclidine Screen Neg (NEGATIVE) Urine Amphetamines Screen Neg (NEGATIVE) Urine Benzodiazepines Screen Neg (NEGATIVE) Urine Cocaine Screen Neg (NEGATIVE) Urine Cannabinoids Screen Neg (NEGATIVE) Potassium Level 4.5 mmol/L (3.5-5.1) Test 02/20/25 22:38 02/20/25 18:52 Arterial Blood pH 7.127 (7.350-7.450) Arterial Blood Partial Pressure CO2 17.6 mmHg (32.0-45.0) Arterial Blood Partial Pressure O2 108.5 mmHg (83.0-108.0) Arterial Blood HCO3 5.7 mmol/L (21.0-28.0) Arterial Blood Oxygen Saturation 96.9 % (94.0-98.0) Arterial Blood Base Excess -21.5 mmol/L (-2.0-3.0) Arterial Blood Oxyhemoglobin 95.7 % (94.0-98.0) Arterial Blood Carboxyhemoglobin 0.6 % (0.5-1.5) Arterial Blood Methemoglobin 0.6 % (0.0-1.5) Blood Gas Total Hemoglobin 12.20 g/dL (12.0-16.0) White Blood Count 32.0 10^3/uL (4.4-10.8) Red Blood Count 5.84 10^6/uL (4.0-5.20) Hemoglobin 12.3 g/dL (12.2-16.2) Hematocrit 43.5 % (36.0-46.0) Mean Corpuscular Volume 74.5 fL (80.0-100.0) Mean Corpuscular Hemoglobin 21.1 pg (28.0-32.0) Mean Corpuscular Hemoglobin Concent 28.3 g/dL (32.0-36.0) Red Cell Distribution Width 18.7 % (11.8-14.3) Platelet Count 447 10^3/uL (140-450) Mean Platelet Volume 9.3 fL (6.9-10.8) Neutrophils (%) (Auto) % (37.0-80.0) Lymphocytes (%) (Auto) % (10.0-50.0) Monocytes (%) (Auto) % (0.0-12.0) Basophils (%) (Auto) % (0.0-2.0) Neutrophils # (Auto) 10 ^3/uL (1.6-8.6) Lymphocytes # (Auto) 10 ^3/uL (0.4-5.4) Monocytes # (Auto) 10 ^3/uL (0-1.3) Differential Total Cells Counted 100.0 (100) Neutrophils % (Manual) 64 (37.0-80.0) Band Neutrophils % (Manual) 10 Lymphocytes % (Manual) 20 (10.0-50.0) Monocytes % (Manual) 6 (0-12) Eosinophils % (Manual) 0 (0-7) Basophils % (Manual) 0 (0.0-2.0) Metamyelocytes % (manual) 0 Myelocytes % (Manual) 0 Promyelocytes % (Manual) 0 Blast Cells % (Manual) 0 Reactive Lymphocytes 0 Platelet Estimate Adequate Large Platelets Few Hypochromasia (manual) Moderate Anisocytosis (manual) Moderate Microcytosis Moderate Prothrombin Time 11.9 sec (9.3-11.8) Prothrombin Time INR 1.14 (0.9-1.15) Activated Partial Thromboplast Time 30.7 SEC (24.5-34.5) Sodium Level 136 mmol/L (136-145) Chloride Level 102 mmol/L (98-107) Carbon Dioxide Level 13 mmol/L (20-31) Anion Gap 21 (5-15) Blood Urea Nitrogen 18 mg/dL (9-23) Creatinine 1.07 mg/dL (0.550-1.02) Glomerular Filtration Rate Calc 58 mL/min (>90) BUN/Creatinine Ratio 16.8 (10.0-20.0) Serum Glucose 559 mg/dL (74-106) Hemoglobin A1c 7.1 % A1C (<5.7) Calcium Level 8.8 mg/dL (8.7-10.4) Total Bilirubin 0.4 mg/dL (0.2-1.0) Aspartate Amino Transferase (AST) 17 U/L (13-40) Alanine Aminotransferase (ALT) 18 U/L (7-40) Alkaline Phosphatase 124 U/L (46-116) Total Protein 7.3 g/dL (5.7-8.2) Albumin 4.4 g/dL (3.2-4.8) Lipase 63 U/L (12-53) Other Laboratory Tests 02/21/25 01:00 02/20/25 18:52 Brief Hx & Hospital Course: 64-year-old female with previous history of metastatic colon cancer resection surgery with left-sided colostomy bag in place, weight reduction surgery, multiple spine surgeries following trauma, thyroid cancer resection on levothyroxine, uncontrolled diabetes mellitus and hypertension presents to the ER with diffuse crampy abdominal pain since last 3 days, which is intermittent in nature, 10/10 in intensity, associated with bilious vomiting and nausea. Since morning there was no colostomy bag output. The patient denies any chest pain, shortness of breath, fever, burning sensation in urination or any other associated complaints. The CT abdomen and pelvis showed possible small bowel obstruction. WBC count was 32, initial ABG was pH 7.1, pCO2 17.6 PO2 108, bicarbonate 5.7 and base excess minus 21.5. Patient was kept NPO, received IV fluid resuscitation and was placed on NG tube decompression by low intermittent suction for gastric drainage. hypokalemia was corrected. Supportive care including antiemetic ondansetron, pain management by morphine and DVT prophylaxis was provided. Broad-spectrum antibiotics meropenem and vancomycin were initiated. uncontrolled diabetes was managed with Lantus and insulin sliding scale. Despite conservative management, her condition deteriorated and she developed septic shock, for which she required aggressive IV fluid resuscitation by lactated Ringer's and normal saline, she was given full vasopressor support with Levophed. Due to worsening metabolic acidosis we initiated a continuous IV bicarbonate infusion. the patient had previously established DNR DNI status but permitted chemical code interventions. During the code event, she was administered 3 doses of atropine and multiple doses of epinephrine. patient was monitored on telemetry. Cardiac ultrasound confirmed asystole. Despite maximal medical therapy, including antibiotics, vasopressors, bicarbonate infusion, and chemical resuscitation her condition continued to deteriorate with progressive multiorgan dysfunction and refractory hypotension. After all appropriate measures were exhausted the patient was pronounced on 02/21/2025 at 4:45 a.m. The was informed and supported at bedside. Operations or Procedures CT abdomen pelvis:1. Colostomy in the lower left abdomen. 2. Possible herniation into the subcutaneous tissues of the colostomy. 3. Possible small bowel obstruction. 4. Ascites 5. Compression of L1and T11. No displacement.No priorstudiesfor comparison. Condition at Discharge: Undetermined Final Diagnosis/Problems List Septic shock with possible small bowel obstruction Discharge Disposition: at Hospital Discharge Statement: "Patient was advised to return to the ER or call 911 if any headaches, dizziness, shortness of breath, chest pain, abdominal pain, bleeding, fevers, or worsening of medical condition. Patient was counseled about treatment plan, medications, possible side effects, patientverbalized understanding. All questions were answered to the best of my ability. This discharge took greater then 30 minutes in planning, reviewing documentation, counseling the patient, and discussing with other team members." ASSESSMENT ASSESSMENT Assessment CYRUS ALVA RESIDENT Feb 21, 2025 07:15
[2025-02-21] MEDS ORDERED: PANTOPRAZOLE 40 MG/10 ML VIAL INJ IV SCH (10:00)
== END 2025-02-21 04:45 | DRG 871 ==
LOC: ER 18:18 → OVERFLOW 22:37
PROVIDERS: ADMIT Internal Medicine; ATTEND Internal Medicine
PROC: 0D9670Z Drainage of Stomach with Drainage Device, Via Natural or Artificial Opening (ICD-10-PCS; 2025-02-20)
PROC: 5A12012 Performance of Cardiac Output, Single, Manual (ICD-10-PCS; principal; 2025-02-21)
DX: A41.9 Sepsis, unspecified organism (principal); R65.21 Severe sepsis with septic shock; K56.600 Partial intestinal obstruction, unspecified as to cause; R18.8 Other ascites; E87.20 Acidosis, unspecified; Z66 Do not resuscitate; E11.65 Type 2 diabetes mellitus with hyperglycemia; K52.9 Noninfective gastroenteritis and colitis, unspecified; E11.9 Type 2 diabetes mellitus without complications; E86.0 Dehydration; I46.9 Cardiac arrest, cause unspecified; E03.9 Hypothyroidism, unspecified; E78.5 Hyperlipidemia, unspecified; I10 Essential (primary) hypertension; Z93.3 Colostomy status; Z85.038 Personal history of other malignant neoplasm of large intestine; Z80.0 Family history of malignant neoplasm of digestive organs; Z79.899 Other long term (current) drug therapy
CPT/HCPCS: 36415; 36600; 71045; 74177; 80053; 80307; 81001; 82010; 82805; 83036; 83605; 83690; 84132; 85007; 85027; 85610; 85730; 87040; 93005; 96365; 96372; 96375; 99291; G0378; J0169; J1815; J2185; J2405; J2543; J3480